=== PATIENT | male | born 1980 | race Caucasian/White ===

== ENCOUNTER 2023-10-13 13:20 | Outpatient (CLI) | payer OTHER, SELFPAY | END 2023-10-13 13:21 | disposition home or self-care (01) | PROVIDERS: PCP Family Medicine; Visit Provider Family Medicine | DX: Z13.228 Encounter for screening for other metabolic disorders (principal); E78.00 Pure hypercholesterolemia, unspecified | CPT/HCPCS: 80053; 80061 ==